=== PATIENT | female | born 1965 | race African-American/Black ===

== ENCOUNTER 2016-12-02 11:05 | Emergency (ER) | payer MEDICAID ==
[~2016-12-02] VITALS: Ht 162.6 cm; Wt 95.0 kg
[~2016-12-02 11:05] MED LIST: ACET-2178 GT; ASPI-1035 PO; BENA40TA3 PO; CALC-198 PO; CLON0.1T14 GT; DIPH50CA4 PO; DOCU-150 PO; FERR-43 PO; FLEET ENEMA PR; INSU3INS6 SUBCUT; KEPP500 GT; MAALOX GT; METF-246 PO; MOM GT; MULT-1146 PO; OMEP20TA80 PO; SITA100T6 PO
[2016-12-02 12:16] VITALS: BP 157/100
== END 2016-12-02 15:39 | disposition home or self-care (01) ==
LOC: ER 13:15
DX: Z46.59 Encounter for fitting and adjustment of other gastrointestinal appliance and device (principal); I10 Essential (primary) hypertension; R56.9 Unspecified convulsions; Z93.1 Gastrostomy status; Z79.4 Long term (current) use of insulin; Z79.82 Long term (current) use of aspirin; Z86.73 Personal history of transient ischemic attack (TIA), and cerebral infarction without residual deficits; Z79.899 Other long term (current) drug therapy
CPT/HCPCS: 99281

== ENCOUNTER 2017-02-08 11:57 | Emergency (ER) | payer MEDICAID ==
[~2017-02-08] VITALS: Ht 162.6 cm; Wt 80.0 kg
[~2017-02-08 11:57] MED LIST changes: -METF-246 PO; +METF10002 PO
[2017-02-08 13:42] VITALS: BP 136/86
== END 2017-02-08 14:01 | disposition home or self-care (01) ==
LOC: ER 13:32
DX: Z93.1 Gastrostomy status (principal); I11.0 Hypertensive heart disease with heart failure; I50.9 Heart failure, unspecified; R56.9 Unspecified convulsions; Z86.73 Personal history of transient ischemic attack (TIA), and cerebral infarction without residual deficits; Z79.82 Long term (current) use of aspirin; Z79.4 Long term (current) use of insulin; Z79.899 Other long term (current) drug therapy
CPT/HCPCS: 99281